=== PATIENT | male | born 1960 | race Caucasian/White ===

== ENCOUNTER 2016-03-16 19:36 | Emergency (ER) | payer BC, OTHER ==
[2016-03-16 20:21] VITALS: BP 139/76
--- NOTE | 2016-03-16 20:35 | UC ---
Respiratory Complaint HPI - HPI Summary HPI Summary: patient has cold symptoms but developed wheezing over the last two days and increased fatigue. - History of Current Complaint Chief Complaint: UCGeneralIllness Stated Complaint: COUGH Time Seen by Provider: 03/16/16 20:24 Hx Obtained From: Patient Onset/Duration: Gradual Onset, Lasting Days Timing: Constant Severity Initially: Mild Severity Currently: Mild Pain Intensity: 3 Pain Scale Used: 0-10 Numeric Character: Cough: Nonproductive Aggravating Factors: Exertion, Deep Breaths, Recumbent Position Alleviating Factors: Nothing Associated Signs And Symptoms: Positive: Dyspnea, Wheezing, URI, Nasal Congestion - Risk Factors Pulmonary Embolism Risk Factors: Negative Cardiac Risk Factors: Negative Pseudomonas Risk Factors: Negative Tuberculosis Risk Factors: Negative - Allergies/Home Medications Allergies/Adverse Reactions: Allergies Allergy/AdvReac Type Severity Reaction Status Date / Time No Known Allergies Allergy Verified 03/16/16 20:20 PMH/Surg Hx/FS Hx/Imm Hx Previously Healthy: Yes Endocrine History Of: Denies: Diabetes, Thyroid Disease Cardiovascular History Of: Reports: Hypertension Denies: Cardiac Disorders, Pacemaker/ICD Respiratory History Of: Reports: Asthma Denies: COPD GI/ History Of: Reports: Gastroesophageal Reflux Denies: Renal Disease Neurological History Of: Denies: CVA, Dementia, Seizures Other History Of: Negative For: Anticoagulant Therapy - Surgical History Surgical History: Yes Surgery Procedure, Year, and Place: l. testicle removed. LIVER BIOPSY 1994 - Family History Known Family History: Positive: Unknown Family History: no known cardio vascular issues in lineage - Social History Alcohol Use: None Substance Use Type: None Smoking Status (MU): Former Smoker When Did the Patient Quit Smoking/Using Tobacco: 30 years ago - Immunization History Most Recent Influenza Vaccination: [id number] Review of Systems Constitutional: Fatigue Skin: Negative Eyes: Negative ENT: Nasal Discharge Respiratory: Shortness Of Breath, Cough Cardiovascular: Negative Gastrointestinal: Negative Genitourinary: Negative Motor: Negative Neurovascular: Negative Musculoskeletal: Negative Neurological: Negative Psychological: Negative All Other Systems Reviewed And Are Negative: Yes Physical Exam Triage Information Reviewed: Yes Appearance: No Pain Distress, Ill-Appearing, Obese Vital Signs: Initial Vital Signs Temp 99.1 F 03/16/16 20:16 Pulse 93 03/16/16 20:16 Resp 18 03/16/16 20:16 BP 139/76 03/16/16 20:16 Pulse Ox 96 03/16/16 20:16 Vital Signs Reviewed: Yes Eye Exam: Normal Eyes: Positive: Conjunctiva Clear ENT: Positive: Hearing grossly normal, Pharyngeal erythema, Nasal congestion, TM red Dental Exam: Normal Neck exam: Normal Neck: Positive: Supple, Nontender, No Lymphadenopathy Respiratory Exam: Normal Respiratory: Positive: Chest non-tender, Lungs clear, Normal breath sounds Cardiovascular Exam: Normal Cardiovascular: Positive: RRR, No Murmur, Pulses Normal Abdominal Exam: Normal Abdomen Description: Positive: Nontender, No Organomegaly, Soft Bowel Sounds: Positive: Present Musculoskeletal Exam: Normal Musculoskeletal: Positive: Strength Intact, ROM Intact, No Edema Neurological Exam: Normal Neurological: Positive: Alert, Muscle Tone Normal Psychological Exam: Normal Skin Exam: Normal UC Diagnostic Evaluation - Laboratory O2 Sat by Pulse Oximetry: 96 Respiratory Course/Dx - Course Course Of Treatment: hx obtained, exam performed, medications prescribed for bronchitis, - Differential Dx/Diagnosis Differential Diagnosis/HQI/PQRI: Bronchitis, Influenza, Laryngitis, Sinusitis, Tuberculosis Provider Diagnoses: bronchitis Discharge - Discharge Plan Condition: Stable Disposition: HOME Prescriptions: Albuterol HFA INHALER* [Ventolin HFA Inhaler*] 1 - 2 puff INH Q4H PRN #1 mdi PRN Reason: Cough Patient Education Materials: Acute Bronchitis (ED) Forms: *Work Release Additional Instructions: Get plenty of rest, increase your fluid intake. take the medications as prescribed.
== END 2016-03-16 20:43 | disposition home or self-care (01) ==
LOC: UCCORT 19:36
DX: J40 Bronchitis, not specified as acute or chronic (principal); Z87.891 Personal history of nicotine dependence
CPT/HCPCS: 99212; G0463

== ENCOUNTER 2016-04-30 21:18 | Emergency (ER) | payer OTHER ==
[2016-04-30 21:41] VITALS: BP 143/78
--- NOTE | 2016-04-30 22:08 | UC ---
UC General HPI - HPI Summary HPI Summary: tingling in left forearm and wrist off and on, especially at night. Has to wake up and shake his hand to get it back to normal. Massage also helps. Thinks it was related to stopping atorvastatin a month or so ago. No weakness. No discoloration. No CP or SOB. Has had an echocardiogram recently, he was told he has a large heart. - History of Current Complaint Chief Complaint: UCUpperExtremity Stated Complaint: RT ARM COMPLAINT Time Seen by Provider: 04/30/16 21:36 Hx Obtained From: Patient, Family/Dairy Quality Assurance Officer Onset/Duration: Gradual Onset, Lasting Weeks - 5 Onset Severity: Mild Current Severity: Mild - Allergy/Home Medications Allergies/Adverse Reactions: Allergies Allergy/AdvReac Type Severity Reaction Status Date / Time No Known Allergies Allergy Verified 04/30/16 21:29 Home Medications: Home Medications Atorvastatin* [Lipitor*] 20 mg PO 1700 04/30/16 [History Confirmed 04/30/16] PMH/Surg Hx/FS Hx/Imm Hx Endocrine History Of: Denies: Diabetes, Thyroid Disease Cardiovascular History Of: Reports: Hypertension Denies: Cardiac Disorders, Pacemaker/ICD Respiratory History Of: Reports: Asthma Denies: COPD GI/ History Of: Reports: Gastroesophageal Reflux Denies: Renal Disease Neurological History Of: Denies: CVA, Dementia, Seizures Other History Of: Negative For: Anticoagulant Therapy - Surgical History Surgical History: Yes Surgery Procedure, Year, and Place: l. testicle removed. LIVER BIOPSY 1994 - Family History Known Family History: Positive: Unknown Family History: no known cardio vascular issues in lineage - Social History Occupation: Disabled Lives: With Family Alcohol Use: None Substance Use Type: None Smoking Status (MU): Former Smoker When Did the Patient Quit Smoking/Using Tobacco: 30 years ago - Immunization History Most Recent Influenza Vaccination: [id number] Review of Systems Constitutional: Negative Skin: Negative Eyes: Negative ENT: Negative Respiratory: Negative Cardiovascular: Negative Gastrointestinal: Negative Genitourinary: Negative Motor: Negative Neurovascular: Negative Musculoskeletal: Negative Neurological: Paresthesia - off and on, left forearm Psychological: Negative All Other Systems Reviewed And Are Negative: Yes Physical Exam Triage Information Reviewed: Yes Appearance: Well-Appearing, No Pain Distress, Well-Nourished Vital Signs: Initial Vital Signs Temp 97.5 F 04/30/16 21:25 Pulse 78 04/30/16 21:25 Resp 14 04/30/16 21:25 BP 143/78 04/30/16 21:25 Pulse Ox 98 04/30/16 21:25 Vital Signs Reviewed: Yes Eye Exam: Normal Neck exam: Normal Respiratory Exam: Normal Cardiovascular Exam: Normal Musculoskeletal Exam: Normal Musculoskeletal: Positive: Other: - normal warmth and coloration of left hand. Strong wrist pulses. Neg Tinel's sign. Normal resort desk clerk strength Neurological Exam: Normal Psychological Exam: Normal Course/Dx - Differential Dx - Multi-Symptom Provider Diagnoses: carpal tunnel syndrome Discharge - Discharge Plan Condition: Stable Disposition: HOME Prescriptions: Beclomethasone 80 MCG MDI(NF) [Qvar 80 MCG MDI(NF)] 2 puff INH BID #1 mdi Patient Education Materials: Carpal Tunnel Syndrome (ED) Referrals: Madan George MD [Primary Care Provider] - Additional Instructions: Try stopping the Atorvastatin for a week to see if the tingling gets better. If that doesn't work, wear the splint for a week to see if it helps.
== END 2016-04-30 22:09 | disposition home or self-care (01) ==
LOC: UCCORT 21:18
DX: G56.02 Carpal tunnel syndrome, left upper limb (principal); I10 Essential (primary) hypertension; Z87.891 Personal history of nicotine dependence
CPT/HCPCS: 99213; G0463

== ENCOUNTER 2016-08-20 13:18 | Emergency (ER) | payer BC, OTHER ==
[2016-08-20 14:38] VITALS: BP 133/78
--- NOTE | 2016-08-20 15:03 | UC ---
Respiratory Complaint HPI - HPI Summary HPI Summary: pt reports 2 days of worsening sinus congestion/kyle/pain, cough, chest congestion , wheezing/dyspnea and malaise. increased inhaler use. sleeping ok on cpap. has needed steroids in the past for similar sx. h/o seasonal allergies - History of Current Complaint Chief Complaint: UCRespiratory Stated Complaint: SINUS,TIRED,FEVER,LOSS OF APPETITE Time Seen by Provider: 08/20/16 14:39 Hx Obtained From: Patient, Family/Patent Counsel Onset/Duration: Sudden Onset, Lasting Days - 2, Still Present, Worse Since - today Timing: Constant Severity Initially: Moderate Severity Currently: Moderate Aggravating Factors: Allergens, Exertion, Deep Breaths Alleviating Factors: Bronchodilator Associated Signs And Symptoms: Positive: Dyspnea, Chills, Wheezing, URI, Nasal Congestion, Sinus Discomfort. Negative: Fever, Pleuritic Chest Pain, Hemoptysis , Dizziness, Hoarseness - Allergies/Home Medications Allergies/Adverse Reactions: Allergies Allergy/AdvReac Type Severity Reaction Status Date / Time No Known Allergies Allergy Verified 08/20/16 14:26 Home Medications: Home Medications Rosuvastatin (NF) [Crestor (NF)] 10 mg PO DAILY 08/20/16 [History Confirmed 11/28] PMH/Surg Hx/FS Hx/Imm Hx Endocrine History: Dyslipidemia Cardiovascular History: Hypertension Respiratory History: Asthma GI/ History: Other - colitis, fatty liver Other GI/ History: colitis, fatty liver Other History Of: Negative For: Anticoagulant Therapy - Surgical History Surgical History: Yes Surgery Procedure, Year, and Place: l. testicle removed. LIVER BIOPSY 1994 - Family History Known Family History: Positive: Hypertension, Other - cancer Family History: no known cardio vascular issues in lineage - Social History Occupation: Employed Full-time Lives: With Family Alcohol Use: None Substance Use Type: None Smoking Status (MU): Former Smoker When Did the Patient Quit Smoking/Using Tobacco: 30 years ago - Immunization History Most Recent Influenza Vaccination: [id number] Review of Systems Constitutional: Negative, Chills Skin: Negative ENT: Sore Throat - resolved, Nasal Discharge, Other - hpi Respiratory: Shortness Of Breath Cardiovascular: Negative Gastrointestinal: Other - decreased appetite Musculoskeletal: Negative Neurological: Headache - sinus All Other Systems Reviewed And Are Negative: Yes Physical Exam Triage Information Reviewed: Yes Appearance: Well-Appearing, No Pain Distress, Obese Vital Signs: Initial Vital Signs Temp 98 F 08/20/16 14:19 Pulse 83 08/20/16 14:19 Resp 18 08/20/16 14:19 BP 133/78 08/20/16 14:19 Pulse Ox 97 08/20/16 14:19 Vital Signs Reviewed: Yes Eyes: Positive: Conjunctiva Clear. Negative: Discharge ENT: Positive: Hearing grossly normal, Pharynx normal, Nasal congestion, Nasal drainage, TMs normal. Negative: Tonsillar swelling, Tonsillar exudate, Trismus , Muffled/hoarse voice Neck: Positive: Supple, Nontender, No Lymphadenopathy Respiratory: Positive: No respiratory distress, No accessory muscle use, Wheezing - scattered, Expiration - prolonged at bases Cardiovascular: Positive: RRR, No Murmur Musculoskeletal Exam: Normal Neurological: Positive: Alert, Muscle Tone Normal Psychological: Positive: Age Appropriate Behavior Skin Exam: Normal UC Diagnostic Evaluation - Laboratory O2 Sat by Pulse Oximetry: 97 Respiratory Course/Dx - Differential Dx/Diagnosis Differential Diagnosis/HQI/PQRI: Asthma, Bronchitis, Lower Resp Infection, Sinusitis Provider Diagnoses: asthma, bronchitis Discharge - Discharge Plan Condition: Stable Disposition: HOME Patient Education Materials: Asthma (ED), Acute Bronchitis (ED) Referrals: Madan George MD [Primary Care Provider] - (follow up in 8-10 days) Additional Instructions: INHALED BRONCHODILATORS: You can use your inhaler every 4 hours while awake for shortness of breath and wheezing. You have received a prescription for an inhaled bronchodilator -- a medication which stimulates the airways in the lung to dilate. This improves the flow of air in asthma, bronchitis, and emphysema. These medicines have some similarity to adrenaline, and can cause similar side effects: shakiness, racing heart, and a sense of nervousness. These side effects decrease with time. Contact your doctor if these side effects are severe. Do not over-use the medicine. Too-frequent use of the inhaler may make it ineffective. Call your doctor if the inhaler is not controlling your symptoms at the prescribed doses. EXPECTORANT MEDICATION: WE SENT IN A SCRIPT FOR MUCINEX SO THAT IT IS EASIER FOR YOU TO PICK THE RIGHT MED AT THE PHARMACY. HOWEVER, YOU CAN ALSO GO TO THE [facility] AND BUY PLAIN GUAIFENESIN WITHOU BINDERS OR FILLERS. An expectorant medicine has been prescribed. This type of drug makes mucous thinner, helping the sinuses, nose, and bronchial tubes to remain free of pus and mucous. Expectorants make a cough less severe and more comfortable, and help infected sinuses drain. In general, antihistamines defeat the purpose of the expectorant by making mucous thicker. They should be avoided unless specifically recommended by your physician. TESSALON PERLES: You have received a prescription for Tessalon Perles (benzonatate). This is a non-narcotic medicine for relief of cough. It usually works in about 15- 20 minutes and lasts around four hours. Tessalon Perles should be swallowed. They should not be chewed or dissolved in the mouth (this can produce temporary numbing of the mouth and choking can occur). If you develop any adverse effects such as wheezing, shortness of breath, hives, rash, itching, or lightheadedness, please return at once. CORTICOSTEROID MEDICATION: You have been given a medicine of the cortisone class. This medication is used to control inflammation or allergy. It is usually only given for a short period of time, until the acute process subsides. There are usually no side effects from short-term use of cortisone-like medications. Some persons feel an increased sense of well-being and are not sleepy at bedtime. Long-term use of cortisone medications is best avoided, unless required for a severe condition. If your condition does not remit, or relapses after the course of corticosteroid medication, you should consult your physician. Contact the physician if you develop lightheadedness, black or tarry stools , swelling of the legs, or significant rapid change in weight.
== END 2016-08-20 15:19 | disposition home or self-care (01) ==
LOC: UCCORT 13:18
DX: J40 Bronchitis, not specified as acute or chronic (principal); J45.909 Unspecified asthma, uncomplicated; Z87.891 Personal history of nicotine dependence
CPT/HCPCS: 99212; G0463

== ENCOUNTER 2017-02-20 14:26 | Emergency (ER) | payer BC | END 2017-02-20 14:40 | disposition left against medical advice (07) | LOC: UCCORT 14:26 | DX: R11.10 Vomiting, unspecified (principal); R19.7 Diarrhea, unspecified; Z53.21 Procedure and treatment not carried out due to patient leaving prior to being seen by health care provider ==

== ENCOUNTER 2017-02-25 15:11 | Emergency (ER) | payer BC ==
[2017-02-25] MEDS: NS 0.9% 1000 ML* 2,000 ML IV ONE ×2 (18:37→18:38)
[2017-02-25 18:49] LABS: Hematocrit 43 % (42-52); Hemoglobin 14.5 g/dl (14.0-18.0); Mean Corpuscular HGB Conc 34 g/dl (31-36); Mean Corpuscular Hemoglobin 30 pg (27-31); Mean Corpuscular Volume 87 fL (80-94); Mean Platelet Volume 8 um3 (7.4-10.4); Red Blood Count 4.91 10^6/ul (4.0-5.4); Red Cell Distribution Width 14 % (10.5-15); White Blood Count 7.1 10^3/ul (3.5-10.8)
[2017-02-25 19:00] LABS: Urine Bacteria Absent (Absent); Urine Bilirubin Negative (Negative); Urine Glucose Negative (Negative); Urine Nitrite Negative (Negative)
[2017-02-25 19:04] LABS: Albumin 4.3 g/dL (3.2-5.2); BUN/Creatinine Ratio 11.4 (8-20); Calcium 9.1 mg/dL (8.6-10.3); EGFR Non-African American 101.8 (>60); Globulin 2.8 g/dL (2-4); Magnesium 1.9 mg/dL (1.9-2.7); Potassium 3.1 mmol/L (3.5-5.0); Total Bilirubin 0.5 mg/dL (0.2-1.0); Total Protein 7.1 g/dL (6.4-8.9)
[2017-02-25] MEDS ORDERED: Iohexol 300* (CONTRAST) 10 ML SDV IV ONE (19:52)
--- NOTE | 2017-02-25 20:21 | RAD ---
CLINICAL HISTORY: Diarrhea, history of colitis COMPARISON: None TECHNIQUE: Multiple contiguous axial CT scans were obtained of the abdomen and pelvis after the administration of intravenous contrast. Coronal and sagittal multiplanar reformations are submitted for review. Oral contrast was administered. Delayed images were obtained through the abdomen and pelvis. FINDINGS: LUNG BASES: The lung bases are clear. LIVER: The liver is normal in shape, size, contour, and attenuation. BILE DUCTS: There is no intrahepatic or extrahepatic biliary dilatation. GALLBLADDER: The gallbladder is normal, without pericholecystic inflammatory change. PANCREAS: The pancreas is normal, without mass or ductal dilatation. SPLEEN: Normal in size and appearance. UPPER GI TRACT: Evaluation of the gastrointestinal tract is limited by incomplete gastric distention. The upper GI tract is unremarkable. SMALL BOWEL AND MESENTERY: The small bowel is normal in contour, course, and caliber. There is no obstruction or dilatation. Multiple small lymph nodes of the mesentery. There is no lymphadenopathy by size criteria COLON: The colon is normal in contour, course, caliber. There is no pericolonic inflammatory change. ADRENALS: Normal bilaterally. KIDNEYS: The kidneys are normal in shape, size, contour, and axis. There is no hydronephrosis or nephrolithiasis. BLADDER: The bladder is smooth in contour. PELVIC ORGANS: The prostate gland is normal. The seminal vesicles are symmetric. AORTA: The aorta is normal. IVC: Unremarkable LYMPH NODES: As noted above, there are multiple small lymph nodes of the small bowel mesentery. There is no lymphadenopathy by size criteria. ABDOMINAL WALL: There is a small fat-containing abdominal hernia. BONES AND SOFT TISSUES: Mild degenerative changes are noted. OTHER: None IMPRESSION: SMALL LYMPH NODES OF THE SMALL BOWEL MESENTERY WITHOUT LYMPHADENOPATHY BY SIZE CRITERIA. NO ACUTE CT PATHOLOGY OF THE VISUALIZED ABDOMEN OR PELVIS.
[2017-02-25] MEDS ORDERED: Potassium Chlor TAB* 20 MEQ TAB.ER PO ONE (20:39)
--- NOTE | 2017-02-25 20:59 | ED ---
GI/ HPI - HPI Summary HPI Summary: 56M presents with diarrhea for 5 days. He states that last weekend he had vomiting for two days and then the diarrhea started. He states he had a similar episode like this two years ago that stopped spontaneously. He was seen at [facility] last weekend and told that wbc was elevated and potassium was low but no CT done. He has history of ulcerative colitis. He denies any blood in his stool. He states this does not feel like a flare. He was seen by his primary but no stool culture as done. He has started to take imodium and peptobismol without relief. He denies any vomiting currently. He denies any fever. He denies any abdominal pain. He has no history of diverticulitis. He states that he feels fatigued. - History of Current Complaint Chief Complaint: EDGeneral Time Seen by Provider: 02/25/17 18:01 Stated Complaint: DIARRHEA X5 DAYS Pain Intensity: 1 - Allergy/Home Medications Allergies/Adverse Reactions: Allergies Allergy/AdvReac Type Severity Reaction Status Date / Time No Known Allergies Allergy Verified 02/25/17 15:24 PMH/Surg Hx/FS Hx/Imm Hx Endocrine/Hematology History: Denies: Hx Anticoagulant Therapy, Hx Diabetes, Hx Thyroid Disease Cardiovascular History: Reports: Hx Hypertension Denies: Hx Pacemaker/ICD Respiratory History: Reports: Hx Asthma Denies: Hx Chronic Obstructive Pulmonary Disease (COPD) History: Denies: Hx Renal Disease Neurological History: Denies: Hx Dementia, Hx Seizures Psychiatric History: Denies: Hx Substance Abuse - Surgical History Surgery Procedure, Year, and Place: left testicle removed at age 18 - Immunization History Date of Tetanus Vaccine: UTD Date of Influenza Vaccine: NO Infectious Disease History: No Infectious Disease History: Denies: Hx Clostridium Difficile, Hx Hepatitis, Hx Human Immunodeficiency Virus (HIV), Hx of Known/Suspected MRSA, Hx Shingles, Hx Tuberculosis, Hx Known/ Suspected VRE, Hx Known/Suspected VRSA, History Other Infectious Disease, Traveled Outside the [place] in Last 30 Days - Family History Known Family History: Positive: Hypertension, Other - cancer Family History: no known cardio vascular issues in lineage - Social History Alcohol Use: None Substance Use Type: Reports: None Smoking Status (MU): Former Smoker Review of Systems Negative: Fever Negative: Chest Pain Negative: Shortness Of Breath Positive: Diarrhea. Negative: Abdominal Pain, Vomiting, Nausea All Other Systems Reviewed And Are Negative: Yes Physical Exam Triage Information Reviewed: Yes Vital Signs On Initial Exam: Initial Vitals Temp Pulse Resp BP Pulse Ox 97.5 F 84 18 147/89 96 02/25/17 15:19 02/25/17 15:19 02/25/17 15:19 02/25/17 15:19 02/25/17 15:19 Vital Signs Reviewed: Yes Appearance: Positive: Well-Appearing Skin: Positive: Warm, Dry Head/Face: Positive: Normal Head/Face Inspection Eyes: Positive: Normal, EOMI, SAIMA, Conjunctiva Clear ENT: Positive: Normal ENT inspection, Pharynx normal, TMs normal Respiratory/Lung Sounds: Positive: Clear to Auscultation, Breath Sounds Present Cardiovascular: Positive: Normal, RRR Abdomen Description: Positive: Nontender, Soft Bowel Sounds: Positive: Present Musculoskeletal: Positive: Normal Neurological: Positive: Normal Psychiatric: Positive: Normal - [place] Coma Scale Coma Scale Total: 15 Diagnostics - Vital Signs Vital Signs Temp Pulse Resp BP Pulse Ox 02/25/17 17:19 98.4 F 80 19 157/111 95 02/25/17 15:19 97.5 F 84 18 147/89 96 - Laboratory Lab Results: Lab Results 02/25/17 02/25/17 02/25/17 Range/Units 18:28 18:35 18:35 WBC 7.1 (3.5-10.8) 10^3/ul RBC 4.91 (4.0-5.4) 10^6/ul Hgb 14.5 (14.0-18.0) g/dl Hct 43 (42-52) % MCV 87 (80-94) fL MCH 30 (27-31) pg MCHC 34 (31-36) g/dl RDW 14 (10.5-15) % Plt Count 220 (150-450) 10^3/ul MPV 8 (7.4-10.4) um3 Neut % (Auto) 46.7 (38-83) % Lymph % (Auto) 36.3 (25-47) % [place] % (Auto) 12.1 H (1-9) % Eos % (Auto) 4.2 (0-6) % Baso % (Auto) 0.7 (0-2) % Absolute Neuts (auto) 3.3 (1.5-7.7) 10^3/ul Absolute Lymphs (auto) 2.6 (1.0-4.8) 10^3/ul Absolute Monos (auto) 0.9 H (0-0.8) 10^3/ul Absolute Eos (auto) 0.3 (0-0.6) 10^3/ul Absolute Basos (auto) 0.1 (0-0.2) 10^3/ul Absolute Nucleated RBC 0.01 10^3/ul Nucleated RBC % 0.1 Sodium 137 (133-145) mmol/L Potassium 3.1 L (3.5-5.0) mmol/L Chloride 104 (101-111) mmol/L Carbon Dioxide 27 (22-32) mmol/L Anion Gap 6 (2-11) mmol/L BUN 9 (6-24) mg/dL Creatinine 0.79 (0.67-1.17) mg/dL Est GFR ( Amer) 131.0 (>60) Est GFR (Non-Af Amer) 101.8 (>60) BUN/Creatinine Ratio 11.4 (8-20) Glucose 80 (70-100) mg/dL Lactic Acid (0.5-2.0) mmol/L Calcium 9.1 (8.6-10.3) mg/dL Magnesium 1.9 (1.9-2.7) mg/dL Total Bilirubin 0.50 (0.2-1.0) mg/dL AST 28 (13-39) U/L ALT 34 (7-52) U/L Alkaline Phosphatase 63 (34-104) U/L C-React Prot High Sens 9.81 mg/L Total Protein 7.1 (6.4-8.9) g/dL Albumin 4.3 (3.2-5.2) g/dL Globulin 2.8 (2-4) g/dL Albumin/Globulin Ratio 1.5 (1-3) Lipase 24 (11.0-82.0) U/L Urine Color Yellow Urine Appearance Clear Urine pH 6.0 (5-9) Ur Specific [place] 1.006 L (1.010-1.030) Urine Protein Negative (Negative) Urine Ketones Negative (Negative) Urine Blood 1+ H (Negative) Urine Nitrate Negative (Negative) Urine Bilirubin Negative (Negative) Urine Urobilinogen Negative (Negative) Ur Leukocyte Esterase Negative (Negative) Urine WBC (Auto) Absent (Absent) Urine RBC (Auto) Trace(0-2/hpf) (Absent) Urine Bacteria Absent (Absent) Urine Glucose Negative (Negative) 02/25/17 Range/Units 18:35 WBC (3.5-10.8) 10^3/ul RBC (4.0-5.4) 10^6/ul Hgb (14.0-18.0) g/dl Hct (42-52) % MCV (80-94) fL MCH (27-31) pg MCHC (31-36) g/dl RDW (10.5-15) % Plt Count (150-450) 10^3/ul MPV (7.4-10.4) um3 Neut % (Auto) (38-83) % Lymph % (Auto) (25-47) % [place] % (Auto) (1-9) % Eos % (Auto) (0-6) % Baso % (Auto) (0-2) % Absolute Neuts (auto) (1.5-7.7) 10^3/ul Absolute Lymphs (auto) (1.0-4.8) 10^3/ul Absolute Monos (auto) (0-0.8) 10^3/ul Absolute Eos (auto) (0-0.6) 10^3/ul Absolute Basos (auto) (0-0.2) 10^3/ul Absolute Nucleated RBC 10^3/ul Nucleated RBC % Sodium (133-145) mmol/L Potassium (3.5-5.0) mmol/L Chloride (101-111) mmol/L Carbon Dioxide (22-32) mmol/L Anion Gap (2-11) mmol/L BUN (6-24) mg/dL Creatinine (0.67-1.17) mg/dL Est GFR ( Amer) (>60) Est GFR (Non-Af Amer) (>60) BUN/Creatinine Ratio (8-20) Glucose (70-100) mg/dL Lactic Acid 1.2 (0.5-2.0) mmol/L Calcium (8.6-10.3) mg/dL Magnesium (1.9-2.7) mg/dL Total Bilirubin (0.2-1.0) mg/dL AST (13-39) U/L ALT (7-52) U/L Alkaline Phosphatase (34-104) U/L C-React Prot High Sens mg/L Total Protein (6.4-8.9) g/dL Albumin (3.2-5.2) g/dL Globulin (2-4) g/dL Albumin/Globulin Ratio (1-3) Lipase (11.0-82.0) U/L Urine Color Urine Appearance Urine pH (5-9) Ur Specific [place] (1.010-1.030) Urine Protein (Negative) Urine Ketones (Negative) Urine Blood (Negative) Urine Nitrate (Negative) Urine Bilirubin (Negative) Urine Urobilinogen (Negative) Ur Leukocyte Esterase (Negative) Urine WBC (Auto) (Absent) Urine RBC (Auto) (Absent) Urine Bacteria (Absent) Urine Glucose (Negative) Result Diagrams: 02/25/17 18:35 02/25/17 18:35 Lab Statement: Any lab studies that have been ordered have been reviewed, and results considered in the medical decision making process. - CT abd CT Interpretation: No Acute Changes - IMPRESSION: SMALL LYMPH NODES OF THE SMALL BOWEL MESENTERY WITHOUT LYMPHADENOPATHY BY SIZE CRITERIA. NO ACUTE CT PATHOLOGY OF THE VISUALIZED ABDOMEN OR PELVIS. CT Interpretation Completed By: Radiologist CHAZ Course/Dx - Course Course Of Treatment: 56M presents with diarrhea for 5 days. He states that last weekend he had vomiting for two days and then the diarrhea started. He states he had a similar episode like this two years ago that stopped spontaneously. He was seen at [facility] ED last weekend and told that wbc was elevated and potassium was low but no CT done. He has history of ulcerative colitis. He denies any blood in his stool. He states this does not feel like a flare. He was seen by his primary but no stool culture as done. He has started to take imodium and peptobismol without relief. He denies any vomiting currently. He denies any fever. He denies any abdominal pain. He has no history of diverticulitis. He states that he feels fatigued. on exam abdomen soft nontender. will get CT to r/o diverticulitis. labs wbc normal. potassium low so supplement. CT normal. c diff neg. told to follow up with his GI. patient understand and agrees with plan. - Diagnoses Differential Diagnoses - Male: Diverticulosis, Gastroenteritis (Bacterial), Gastroenteritis (Viral), Urinary Tract Infection Provider Diagnoses: Diarrhea Discharge - Discharge Plan Condition: Good Disposition: HOME Patient Education Materials: Acute Diarrhea (ED) Forms: *Work Release Referrals: Madan George MD [Primary Care Provider] - Additional Instructions: Drink small amounts of fluid as tolerated When able to eat follow BRAT diet: Bananas, rice, applesauce, toast Take Tylenol for pain as needed every 6 hours Take imodium as prescribed Follow up with GI Return to ED if develop any new or worsening symptoms
[2017-02-25 21:22] VITALS: BP 147/97
--- OUTSIDE RECORDS SUMMARY | 2017-02-28 09:32 | XMS REPORT | Continuity of Care Document ---
:1960 Author Organization [facility] Address [address] [place] [address] Care Team Providers Name Role Phone QASIM MADDOX MD Primary Care Physician [phone] Insurance Providers Payer Name Policy Number Subscriber Name Relationship [employer] [employer] [id number] MARCELLA HICKS SELF Advance Directives Directive Response Recorded Date/Time Code status: Limited Full Code 02/20/17 2:50pm Advance Directive? N 02/20/17 2:50pm Living Will? N 02/20/17 2:50pm Health Care Proxy? N 02/20/17 2:50pm Is the patient an Organ Donor? N 02/20/17 2:50pm Chief Complaint and Reason for Visit Reason for Visit VOMITING,DIARRHEA Problems Active Medical Problems Problem Onset Date Recorded Date Status Diarrhea Unknown 02/20/17 Active Medications Current Home Medications Medication Dose Units Route Directions Days/Qty Instructions Start Date Amlodipine (Norvasc) 10 MG TAB Lisinopril (Prinivil) 2.5 MG TAB Ondansetron HCl 4 MG ORAL EVERY 8 HOURS 15 NEEDED FOR 02/20/17 (Zofran) 4 MG NEEDED as NAUSEA TABLET needed for NAUSEA Rosuvastatin 20 MG ORAL ONCE DAILY 30 Calcium 20 MG TABLET STOOL STUDIES FECAL 02/20/17 LEUKOCYTES, STOOL FOR CDIFFICILE AND STOOL CULTURE Sertraline (Zoloft) 100 MG TAB Sertraline HCl 50 MG ORAL ONCE DAILY (Zoloft) 50 MG TABLET Sulfasalazine 500 1,000 MG ORAL 3 TIMES DAILY MG TAB Past Home Medications Medication Directions Ordered Status Albuterol (Proventil) 2 Mg/5 Ml Ounce Ounce, Unknown Discontinued Folic Acid 1 Mg Tab Tab, Unknown Discontinued Social History Problem Response Recorded Date Other substance/drug use N 02/20/17 Alcohol amt N 04/10/06 Evidence of drug/alcohol abuse? N 02/20/17 Query Response Start Date Stop Date Smoking Status Former smoker Hospital Discharge Instructions No hospital discharge instructions. Plan of Care Discharge Date 02/20/17 Disposition Routine Discharge Home Instructions/Education Provided ABD PAIN (USACS) Acute Nausea and Vomiting (ED) Acute Diarrhea (ED) Prescriptions See Medications Section Referrals QASIM MADDOX MD - Additional Instructions/Education You need to make an appointment to follow- up with the following health care provider or your regular doctor within 3 days. Please make your appointment to see your health care provider as soon as possible. Please return immediately if your symptoms worsen, or you cannot get a follow-up appointment. Follow up with your primary care provider In the next 24 hours. If you experience any worsening of her and her symptoms return to the emergency department immediately for further evaluation. Please collect stool samples and dropped him off to the lab as directed. Functional Status Query Response Date Recorded Do you get in and out of a chair: Independently February 20, 2017 3:33pm Do you walk: Independently February 20, 2017 3:33pm Do you bathe/dress: Independently February 20, 2017 3:33pm Adaptive devices: None February 20, 2017 3:33pm Amount of assistance needed: None February 20, 2017 3:33pm Living situation: Home with family February 20, 2017 3:33pm Mood: Accepting February 20, 2017 3:33pm Orientation: X3: Person/place/time February 20, 2017 3:33pm Allergies, Adverse Reactions, Alerts No known allergies. Immunizations Name Date Given Type Last Tetanus Historical Vital Signs Vital Reading Collection Date/Time Result Blood Pressure 02/20/17 4:30pm 128/85 Temperature 02/20/17 4:30pm 98.0 F Temperature Source 02/20/17 4:30pm Oral Respiratory Rate 02/20/17 4:30pm 18 Pulse Rate 02/20/17 4:30pm 92 Bedside Pulse Oximetry 02/20/17 4:30pm 94 Height 02/20/17 2:49pm 6 ft 0 in Height 02/20/17 2:49pm 182.88 cm Weight 02/20/17 2:49pm 260 lb Weight 02/20/17 2:49pm 117.936 kg Body Mass Index 02/20/17 2:49pm 35.3 kg/m2 Results Laboratory Results Test Name Result Units Flags Reference Collection Result Comments Date/Time Date/Time Urine Color DK YELLOW YELLOW 02/20/17 02/20/17 3:46pm 4:00pm Urine Clarity CLEAR CLEAR 02/20/17 02/20/17 3:46pm 4:00pm Urine Glucose (UA) NEGATIVE mg/dL NEGATIVE 02/20/17 02/20/17 3:46pm 4:00pm Urine Bilirubin NEGATIVE NEGATIVE 02/20/17 02/20/17 3:46pm 4:00pm Urine Ketones NEGATIVE mg/dL NEGATIVE 02/20/17 02/20/17 3:46pm 4:00pm Urine Specific 1.025 1.010-1.030 02/20/17 02/20/17 Sebastian 3:46pm 4:00pm Urine Blood NEGATIVE NEGATIVE 02/20/17 02/20/17 3:46pm 4:00pm Urine pH 5.5 L 6.5-7.5 02/20/17 02/20/17 3:46pm 4:00pm Urine Protein NEGATIVE mg/dL NEGATIVE 02/20/17 02/20/17 3:46pm 4:00pm Urine Urobilinogen 0.2 E.U./dL 0.2-1.0 02/20/17 02/20/17 3:46pm 4:00pm Urine Nitrite NEGATIVE NEGATIVE 02/20/17 02/20/17 3:46pm 4:00pm Urine Leukocyte NEGATIVE NEGATIVE 02/20/17 02/20/17 Esterase 3:46pm 4:00pm White Blood Count 14.4 K/uL H 3.4-10.5 02/20/17 02/20/17 3:29pm 3:41pm Red Blood Count 4.42 M/uL 4.20-5.80 02/20/17 02/20/17 3:29pm 3:41pm Hemoglobin 14.6 gm/dL 12.8-17.0 02/20/17 02/20/17 3:29pm 3:41pm Hematocrit 41.5 % 38.0-48.0 02/20/17 02/20/17 3:29pm 3:41pm Mean Corpuscular 93.9 fl 80.0-96.0 02/20/17 02/20/17 Volume 3:29pm 3:41pm Mean Corpuscular 33.0 pg 27.0-33.0 02/20/17 02/20/17 Hemoglobin 3:29pm 3:41pm Mean Corpuscular 35.2 g/dL 31.7-36.0 02/20/17 02/20/17 Hemoglobin Concent 3:29pm 3:41pm Platelet Count 166 K/uL # 155-360 02/20/17 02/20/17 3:29pm 3:41pm Red Cell 44.4 fl 36-51 02/20/17 02/20/17 Distribution Width 3:29pm 3:41pm RDW Coefficient of 16.3 % H 11.6-15.8 02/20/17 02/20/17 Variation 3:29pm 3:41pm Mean Platelet 10.7 fL H 6.6-10.6 02/20/17 02/20/17 Volume 3:29pm 3:41pm Neutrophils # 13.47 K/uL H 1.8-7.0 02/20/17 02/20/17 (Auto) 3:29pm 3:41pm Lymphocytes # 0.21 K/uL L 1.0-4.0 02/20/17 02/20/17 (Auto) 3:29pm 3:41pm Monocytes # (Auto) 0.56 K/uL 0.0-0.8 02/20/17 02/20/17 3:29pm 3:41pm Eosinophils # 0.16 K/uL 0.0-0.5 02/20/17 02/20/17 (Auto) 3:29pm 3:41pm Basophils # (Auto) 0.01 K/uL 0.0-0.1 02/20/17 02/20/17 3:29pm 3:41pm Manual Slide DIFF 02/20/17 02/20/17 Review ORDERED 3:29pm 4:24pm (Hematology) Differential Total 100 #CELLS 02/20/17 02/20/17 Cells Counted 3:29pm 4:30pm Band Neutrophils % 13 % *H 0-8 02/20/17 02/20/17 3:29pm 4:30pm Neutrophils % 80 % H 33-73 02/20/17 02/20/17 3:29pm 4:30pm Lymphocytes % 1 % L 20-42 02/20/17 02/20/17 3:29pm 4:30pm Monocytes % 5 % 0-10 02/20/17 02/20/17 3:29pm 4:30pm Eosinophils % 1 % 0-5 02/20/17 02/20/17 3:29pm 4:30pm Platelet Estimate NORMAL 02/20/17 02/20/17 3:29pm 4:30pm Normal RBC NORMAL 02/20/17 02/20/17 Morphology 3:29pm 4:30pm Glucose Screen 138 mg/dL H 74-106 02/20/17 02/20/17 3:29pm 3:55pm Blood Urea 20 mg/dL H 7-18 02/20/17 02/20/17 Nitrogen 3:29pm 3:55pm Creatinine 1.0 mg/dL 0.6-1.3 02/20/17 02/20/17 3:29pm 3:55pm Estimated GFR >60 mL/min >60 02/20/17 02/20/17 (Non- 3:29pm 3:55pm Swiss Estimated GFR >60 mL/min >60 02/20/17 02/20/17 Note: () 3:29pm 3:55pm Persistent reduction for 3 months or more in an eGFR <60 mL/min/1.73 m2 defines CKD. Patients with eGFR values >/=60 mL/min/1.73 m2 may also have CKD if evidence of persistent proteinuria is present. The original MDRD equation for estimated GFR is not valid for patients less than 18 years of age. Additional information may be found at www.[facility].org. BUN/Creatinine 20.0 ratio 02/20/17 02/20/17 Ratio 3:29pm 3:55pm Sodium Level 139 mmol/L 136-145 02/20/17 02/20/17 3:29pm 3:55pm Potassium Level 3.3 mmol/L L 3.5-5.1 02/20/17 02/20/17 3:29pm 3:55pm Chloride Level 105 mmol/L 98-107 02/20/17 02/20/17 3:29pm 3:55pm Carbon Dioxide 25 mmol/L 21-32 02/20/17 02/20/17 Level 3:29pm 3:55pm Anion Gap 9 mEq/L 8-16 02/20/17 02/20/17 3:29pm 3:55pm Calcium Level 8.6 mg/dL 8.5-10.1 02/20/17 02/20/17 3:29pm 3:55pm Total Protein 7.6 g/dL 6.4-8.2 02/20/17 02/20/17 3:29pm 3:55pm Albumin 4.0 g/dL 3.4-5.0 02/20/17 02/20/17 3:29pm 3:55pm Globulin 3.6 g/dL 1.9-4.3 02/20/17 02/20/17 3:29pm 3:55pm Albumin/Globulin 1.1 ratio 02/20/17 02/20/17 Ratio 3:29pm 3:55pm Total Bilirubin 0.5 mg/dL 0.2-1.0 02/20/17 02/20/17 3:29pm 3:55pm Aspartate Amino 30 U/L 15-37 02/20/17 02/20/17 Transf (AST/SGOT) 3:29pm 3:55pm Alanine 45 U/L 12-78 02/20/17 02/20/17 Aminotransferase 3:29pm 3:55pm (ALT/SGPT) Alkaline 74 U/L 45-117 02/20/17 02/20/17 Phosphatase 3:29pm 3:55pm Lipase 211 U/L 56-289 02/20/17 02/20/17 3:29pm 3:55pm Procedures No Known History of Procedures. Encounters Encounter Location Arrival/Admit Date Discharge/Depart Date Attending Provider Departed [place] 02/20/17 2:45pm 02/20/17 4:55pm ROSINA COLE [facility]
== END 2017-02-25 21:22 | disposition home or self-care (01) ==
LOC: ED 15:11
DX: R19.7 Diarrhea, unspecified (principal); R11.10 Vomiting, unspecified; Z87.891 Personal history of nicotine dependence
CPT/HCPCS: 36415; 74177; 80053; 81003; 81015; 83605; 83690; 83735; 85025; 86141; 87045; 87046; 87493; 87899; 96360; 99283; A9270-GY; Q9967

== ENCOUNTER 2017-08-24 18:37 | Emergency (ER) | payer BC ==
[2017-08-24 19:01] VITALS: BP 136/82
[2017-08-24] MEDS ORDERED: Loperamide CAP* 2 MG PO ONE (19:17)
[2017-08-24] MEDS ORDERED: Ondansetron ODT TAB* 4 MG PO ONE (19:17)
--- NOTE | 2017-08-24 19:37 | UC ---
Abdominal Pain Male HPI - HPI Summary HPI Summary: Pt c/o sudden onset of abdominal pain, nausea and loose stools today. Pt has history of ulcerative colitis. Pt states he has had 4 episode of large amounts of loose stool. - History of Current Complaint Chief Complaint: UCGI Stated Complaint: NAUSEA, VOMITING, DIARRHEA Time Seen by Provider: 08/24/17 19:11 Hx Obtained From: Patient Onset/Duration: Sudden Onset, Lasting Hours Timing: Intermittent Episodes Lasting: Severity Initially: Mild Severity Currently: None Pain Intensity: 0 Location: Diffuse Radiates: No Character: Colicy, Cramping, Dull Aggravating Factor(s): Food Alleviating Factor(s): Nothing Associated Signs And Symptoms: Positive: Decreased Appetite, Nausea, Diarrhea - Risk Factors Testicular Torsion: Negative - Allergies/Home Medications Allergies/Adverse Reactions: Allergies Allergy/AdvReac Type Severity Reaction Status Date / Time No Known Allergies Allergy Verified 06/21/17 10:31 PMH/Surg Hx/FS Hx/Imm Hx Previously Healthy: Yes GI/ History: Other - ulcerative colitis Other GI/ History: ulcerative colitis Other History Of: Negative For: Anticoagulant Therapy - Surgical History Surgical History: Yes Surgery Procedure, Year, and Place: left testicle removed at age 18. 1994 liver biopsy. DENTAL SURGERY - Family History Known Family History: Positive: Hypertension, Other - cancer Family History: no known cardio vascular issues in lineage - Social History Occupation: Employed Full-time Lives: With Family Alcohol Use: None Substance Use Type: None Smoking Status (MU): Former Smoker Have You Smoked in the Last Year: No When Did the Patient Quit Smoking/Using Tobacco: 30 years ago Household Exposure Type: Cigarettes - Immunization History Most Recent Influenza Vaccination: [id number] Vaccination Up to Date: Yes Review of Systems Constitutional: Negative Skin: Negative Eyes: Negative ENT: Negative Respiratory: Negative Cardiovascular: Negative Gastrointestinal: Abdominal Pain, Diarrhea, Nausea Genitourinary: Negative Motor: Negative Neurovascular: Negative Musculoskeletal: Negative Neurological: Negative Psychological: Negative Is Patient Immunocompromised?: No All Other Systems Reviewed And Are Negative: Yes Physical Exam Triage Information Reviewed: Yes Appearance: Ill-Appearing Vital Signs: Initial Vital Signs Temp 98.2 F 08/24/17 18:56 Pulse 73 08/24/17 18:56 Resp 18 08/24/17 18:56 BP 136/82 08/24/17 18:56 Pulse Ox 96 08/24/17 18:56 Vital Signs Reviewed: Yes Eye Exam: Normal ENT: Positive: Hearing grossly normal Dental Exam: Normal Neck exam: Normal Respiratory Exam: Normal Respiratory: Positive: Normal breath sounds Cardiovascular Exam: Normal Abdominal Exam: Normal Abdomen Description: Positive: Nontender Bowel Sounds: Positive: Present Musculoskeletal Exam: Normal Neurological Exam: Normal Psychological Exam: Normal Skin Exam: Normal Abd Pain Male Course/Dx - Differential Dx/Clinical Impression Differential Diagnosis/HQI/PQRI: Other - gastroenteritis ulcerative colitis Provider Diagnoses: diarrhea. abdominal pain. nausea Discharge - Sign-Out/Discharge Documenting (check all that apply): Discharge/Admit/Transfer - Discharge Plan Condition: Stable Disposition: HOME Prescriptions: Ondansetron ODT TAB* [Zofran 4 MG Odt TAB*] 4 mg PO Q8H PRN #15 tab.odt PRN Reason: Nausea Patient Education Materials: Acute Nausea and Vomiting (ED), Acute Diarrhea (ED ), Abdominal Pain (ED) Forms: *Work Release Referrals: Madan George MD [Primary Care Provider] - If Needed Additional Instructions: Please follow up with your PCP or return to clinic as needed. If symptoms worsen , please seek care at the closest emergency room immediately. - Billing Disposition and Condition Condition: STABLE Disposition: Home
== END 2017-08-24 20:12 | disposition home or self-care (01) ==
LOC: UCCORT 18:37
DX: R10.9 Unspecified abdominal pain (principal); R11.0 Nausea; R19.7 Diarrhea, unspecified; Z87.891 Personal history of nicotine dependence
CPT/HCPCS: 99211; A9270-GY; G0463

== ENCOUNTER 2017-08-27 14:57 | Emergency (ER) | payer BC ==
[2017-08-27 15:08] VITALS: BP 148/89
--- NOTE | 2017-08-27 15:35 | UC ---
UC General HPI - HPI Summary HPI Summary: OVER 3 MONTHS OF CONSTANT FATIGUE. NO FEVER, NAUSEA, SHORTNESS OF BREATH. NO SORE THROAT OR EAR PAIN. HE DOES REPORT SOME INTERMITTENT NAUSEA AND LOOSE STOOLS AND DECREASED APPETITE BUT HAS A HISTORY OF ULCERATIVE COLITIS. PATIENT REPORTS HE WORKS DOUBLE AND TRIPLE SHIFTS AT WORK AND IS CONCERNED THAT HE IS NOT GETTING ENOUGH TIME TO REST. 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 - History of Current Complaint Chief Complaint: UCGeneralIllness Stated Complaint: FATIGUE Time Seen by Provider: 08/27/17 15:14 Hx Obtained From: Patient Onset/Duration: Gradual Onset, Lasting Weeks, Still Present Timing: Constant Onset Severity: Moderate Current Severity: Moderate Pain Intensity: 0 - Allergy/Home Medications Allergies/Adverse Reactions: Allergies Allergy/AdvReac Type Severity Reaction Status Date / Time No Known Allergies Allergy Verified 06/21/17 10:31 Home Medications: Home Medications Albuterol HFA INHALER* [Ventolin HFA Inhaler*] 2 puff INH Q4H PRN 08/27/17 [ History Confirmed 08/27/17] Aspirin 81 mg CHEW TAB* 81 mg PO DAILY 08/27/17 [History Confirmed 08/27/17] Folic Acid TAB* [Folvite TAB*] 1 mg PO DAILY 08/27/17 [History Confirmed ] Multivitamin [Multivitamins] 1 cap PO DAILY 08/27/17 [History Confirmed 08/27/17 ] PMH/Surg Hx/FS Hx/Imm Hx Endocrine History: Dyslipidemia Cardiovascular History: Hypertension Respiratory History: Asthma Other GI/ History: ULCERATIVE COLITIS Other History Of: Negative For: Anticoagulant Therapy - Surgical History Surgical History: Yes Surgery Procedure, Year, and Place: left testicle removed at age 18. 1994 liver biopsy. DENTAL SURGERY - Family History Known Family History: Positive: Hypertension, Other - cancer Family History: no known cardio vascular issues in lineage - Social History Alcohol Use: None Substance Use Type: None Smoking Status (MU): Former Smoker Have You Smoked in the Last Year: No When Did the Patient Quit Smoking/Using Tobacco: 30 years ago Household Exposure Type: Cigarettes - Immunization History Most Recent Influenza Vaccination: [id number] Vaccination Up to Date: Yes Review of Systems Constitutional: Fatigue ENT: Negative Respiratory: Negative Cardiovascular: Negative Gastrointestinal: Negative All Other Systems Reviewed And Are Negative: Yes Physical Exam Triage Information Reviewed: Yes Appearance: Well-Appearing, No Pain Distress, Well-Nourished Vital Signs: Initial Vital Signs Temp 98.4 F 08/27/17 15:04 Pulse 84 08/27/17 15:04 Resp 16 08/27/17 15:04 BP 148/89 08/27/17 15:04 Pulse Ox 98 08/27/17 15:04 Vital Signs Reviewed: Yes Eyes: Positive: Conjunctiva Clear ENT: Positive: Hearing grossly normal, Pharynx normal, TMs normal Neck: Positive: Supple, Nontender, No Lymphadenopathy Respiratory Exam: Normal Cardiovascular Exam: Normal Abdomen Description: Positive: Soft Musculoskeletal: Positive: No Edema Neurological: Positive: Alert Psychological: Positive: Age Appropriate Behavior Skin: Negative: rashes Course/Dx - Differential Dx - Multi-Symptom Provider Diagnoses: FATIGUE Discharge - Sign-Out/Discharge Documenting (check all that apply): Discharge/Admit/Transfer - Discharge Plan Condition: Stable Disposition: HOME Patient Education Materials: Fatigue (ED) Forms: *Work Release Referrals: Madan George MD [Primary Care Provider] - 1 Week Additional Instructions: YOUR FATIGUE MAY VERY WELL BE CAUSED BY YOUR IRREGULAR WORK SCHEDULE AND LACK OF SLEEP. WILL CHECK LABS TODAY INCLUDING BLOOD COUNT, METABOLIC PANEL AND THYROID. YOU WILL NEED TO FOLLOW-UP WITH YOUR PCP FOR FURTHER EVALUATION OF YOUR SYMPTOMS. - Billing Disposition and Condition Condition: STABLE Disposition: Home
[2017-08-28 13:52] LABS: ABS Basophils 0 10^3/ul (0-0.2); ABS Eosinophils 0.2 10^3/ul (0-0.6); ABS Lymphocytes 1.2 10^3/ul (1.0-4.8); ABS Monocytes 0.5 10^3/ul (0-0.8); ABS Nucleated RBC 0 10^3/ul; Eosinophil % 3.8 % (0-6); Hematocrit 40 % (42-52); Hemoglobin 13.4 g/dl (14.0-18.0); Lymphocyte % 20.3 % (25-47); Mean Corpuscular HGB Conc 34 g/dl (31-36); Mean Corpuscular Hemoglobin 32 pg (27-31); Mean Corpuscular Volume 93 fL (80-94); Mean Platelet Volume 9.3 um3 (7.4-10.4); Nucleated Red Blood Cells % 0.2; Platelet Count 177 10^3/ul (150-450); Red Blood Count 4.23 10^6/ul (4.00-5.40); Red Cell Distribution Width 14 % (10.5-15)
--- NOTE | 2017-08-28 16:25 | UC ---
- Progress Note Progress Note: patients latest visit Cheif complaint of fatigue. H and H slightly low at 13.4 and 40. no other abnormal labs in the cbc, if symptoms persist follow up with his PCP. Discharge - Sign-Out/Discharge Documenting (check all that apply): Post-Discharge Follow Up - Discharge Plan Condition: Stable Disposition: HOME Patient Education Materials: Fatigue (ED) Forms: *Work Release Referrals: Madan George MD [Primary Care Provider] - 1 Week Additional Instructions: YOUR FATIGUE MAY VERY WELL BE CAUSED BY YOUR IRREGULAR WORK SCHEDULE AND LACK OF SLEEP. WILL CHECK LABS TODAY INCLUDING BLOOD COUNT, METABOLIC PANEL AND THYROID. YOU WILL NEED TO FOLLOW-UP WITH YOUR PCP FOR FURTHER EVALUATION OF YOUR SYMPTOMS. CONSIDER [facility] FOR FURTHER EVALUATION OF YOUR CHRONIC BACK PAIN [facility] [address] [place] [id number] - Billing Disposition and Condition Condition: STABLE Disposition: Home
== END 2017-08-27 16:38 | disposition home or self-care (01) ==
LOC: UCEAST 14:57
DX: R53.83 Other fatigue (principal); R11.0 Nausea; R19.7 Diarrhea, unspecified; E78.5 Hyperlipidemia, unspecified; I10 Essential (primary) hypertension; J45.909 Unspecified asthma, uncomplicated; Z87.891 Personal history of nicotine dependence; Z82.49 Family history of ischemic heart disease and other diseases of the circulatory system; Z80.9 Family history of malignant neoplasm, unspecified
CPT/HCPCS: 36415; 85025; 99212; G0463

== ENCOUNTER 2018-06-03 16:46 | Emergency (ER) | payer BC ==
[2018-06-03 18:20] LABS: Influenza A Molecular NEGATIVE (Negative); Influenza B Molecular NEGATIVE (Negative)
--- NOTE | 2018-06-03 18:22 | UC ---
Respiratory Complaint HPI - HPI Summary HPI Summary: 57 yo male with asthma presents with one week hx f/c, cough and congestion has been using rescue inhaler no cp or sob no n/v - History of Current Complaint Chief Complaint: UCRespiratory Stated Complaint: COUGH, CONGESTION Time Seen by Provider: 06/03/18 18:01 Hx Obtained From: Patient Onset/Duration: Gradual Onset, Lasting Days Timing: Constant Severity Initially: Moderate Pain Intensity: 0 Pain Scale Used: 0-10 Numeric Character: Cough: Productive Aggravating Factors: Nothing Alleviating Factors: Bronchodilator Associated Signs And Symptoms: Positive: Fever, Chills, Wheezing, URI, Nasal Congestion - Allergies/Home Medications Allergies/Adverse Reactions: Allergies Allergy/AdvReac Type Severity Reaction Status Date / Time No Known Allergies Allergy Verified 06/03/18 17:41 PMH/Surg Hx/FS Hx/Imm Hx Previously Healthy: Yes Endocrine History: Dyslipidemia Cardiovascular History: Hypertension Respiratory History: Asthma, Bronchitis Other History Of: Negative For: Anticoagulant Therapy - Surgical History Surgical History: Yes Surgery Procedure, Year, and Place: left testicle removed at age 18. 1994 liver biopsy. DENTAL SURGERY - Family History Known Family History: Positive: Hypertension, Respiratory Disease, Other - cancer Family History: no known cardio vascular issues in lineage - Social History Alcohol Use: None Alcohol Amount: RECOVERING ALCHOHOLIC Substance Use Type: None Smoking Status (MU): Former Smoker Have You Smoked in the Last Year: No When Did the Patient Quit Smoking/Using Tobacco: 30 years ago Household Exposure Type: Cigarettes - Immunization History Most Recent Influenza Vaccination: [id number] Vaccination Up to Date: Yes Review of Systems All Other Systems Reviewed And Are Negative: Yes Constitutional: Positive: Fever, Chills, Fatigue Skin: Positive: Negative Eyes: Positive: Negative ENT: Positive: Negative Respiratory: Positive: Cough, Other - wheezing Cardiovascular: Positive: Negative Gastrointestinal: Positive: Negative Genitourinary: Positive: Negative Motor: Positive: Negative Neurovascular: Positive: Negative Musculoskeletal: Positive: Negative Neurological: Positive: Negative Psychological: Positive: Negative Physical Exam Triage Information Reviewed: Yes Appearance: Well-Appearing, No Pain Distress, Well-Nourished Vital Signs: Initial Vital Signs Temp 97.3 F 06/03/18 17:46 Pulse 82 06/03/18 17:46 Resp 18 06/03/18 17:46 BP 144/76 06/03/18 17:46 Pulse Ox 96 06/03/18 17:46 Vital Signs Reviewed: Yes Eyes: Positive: Conjunctiva Clear ENT: Positive: Hearing grossly normal, Nasal congestion, TMs normal. Negative: Nasal drainage, Tonsillar swelling, Tonsillar exudate, Trismus, Muffled voice, Hoarse voice, Dental tenderness Dental Exam: Normal Neck: Positive: Nontender, No Lymphadenopathy Respiratory: Positive: Lungs clear, Normal breath sounds, No respiratory distress, No accessory muscle use, Wheezing - with forced expiration only Cardiovascular: Positive: RRR, No Murmur Musculoskeletal: Positive: ROM Intact, No Edema Neurological: Positive: Alert Psychological Exam: Normal Skin Exam: Normal Diagnostics - Radiology No standard instances Radiology Interpretation Completed By: ED Physician Summary of Radiographic Findings: NAD Respiratory Course/Dx - Course Course Of Treatment: influenza (-) - Differential Dx/Diagnosis Provider Diagnosis: Acute bronchitis Discharge - Sign-Out/Discharge Documenting (check all that apply): Patient Departure All imaging exams completed and their final reports reviewed: No - Discharge Plan Condition: Stable Disposition: HOME Patient Education Materials: Acute Bronchitis (ED) Forms: *Work Release Referrals: Tsering Vee MD [Primary Care Provider] - 4 Days (if not better) - Billing Disposition and Condition Condition: STABLE Disposition: Home
[2018-06-03] MEDS ORDERED: predniSONE TAB* 20 MG PO ONE (18:50)
[2018-06-03] MEDS ORDERED: Amoxicillin PO (*) 250 MG CAP PO ONE (18:51)
[2018-06-03] MEDS ORDERED: Amoxicillin PO (*) 500 MG CAP PO ONE (18:51)
[2018-06-03 18:59] VITALS: BP 150/88
--- NOTE | 2018-06-04 08:46 | UC ---
- Progress Note Progress Note: X ray report reviewed. neg. Course/Dx - Diagnoses Provider Diagnoses: Acute bronchitis Discharge - Sign-Out/Discharge Documenting (check all that apply): Post-Discharge Follow Up All imaging exams completed and their final reports reviewed: Yes - Discharge Plan Condition: Stable Disposition: HOME Prescriptions: Amoxicillin PO (*) [Amoxicillin 875 MG (*)] 875 mg PO BID #14 tab predniSONE [Deltasone 20 MG TAB] 40 mg PO DAILY #8 tab Patient Education Materials: Acute Bronchitis (ED) Forms: *Work Release Referrals: Tsering Vee MD [Primary Care Provider] - 4 Days (if not better) - Billing Disposition and Condition Condition: STABLE Disposition: Home
== END 2018-06-03 19:05 | disposition home or self-care (01) ==
LOC: UCCORT 16:46
DX: J20.9 Acute bronchitis, unspecified (principal); J45.909 Unspecified asthma, uncomplicated; I10 Essential (primary) hypertension; Z87.891 Personal history of nicotine dependence
CPT/HCPCS: 71046; 99212; A9270-GY; G0463; J7512

== ENCOUNTER 2018-06-30 21:03 | Emergency (ER) | payer BC ==
[2018-06-30 21:12] VITALS: BP 134/86
--- NOTE | 2018-06-30 21:22 | ED ---
HPI Chest Pain - HPI Summary HPI Summary: 58yr old male with the complaint of chest pain. Onset over the past few days, comes and goes, and worse with exertion. Associated with SOB. He feels like the pain is an ache. Presently 04/23. He has a family history of CAD. in Brother at Age 47 of [place]. Father and Grandmother with CAD. Denies dizziness , syncope, diaphoresis, nausea. He took extra baby aspirin today due to pain in his chest. 162 mg orally this morning. - History of Current Complaint Chief Complaint: UCChestPain Time Seen by Provider: 06/30/18 21:07 Pain Intensity: 2 - Allergy/Home Medications Allergies/Adverse Reactions: Allergies Allergy/AdvReac Type Severity Reaction Status Date / Time No Known Allergies Allergy Verified 06/03/18 17:41 PMH/Surg Hx/FS Hx/Imm Hx Endocrine/Hematology History: Denies: Hx Anticoagulant Therapy, Hx Diabetes, Hx Thyroid Disease Cardiovascular History: Reports: Hx Hypertension Denies: Hx Pacemaker/ICD Respiratory History: Reports: Hx Asthma Denies: Hx Chronic Obstructive Pulmonary Disease (COPD) History: Denies: Hx Renal Disease Neurological History: Denies: Hx Dementia, Hx Seizures Psychiatric History: Denies: Hx Substance Abuse - Surgical History Surgery Procedure, Year, and Place: left testicle removed at age 18. 1994 liver biopsy. DENTAL SURGERY - Immunization History Date of Tetanus Vaccine: UTD Date of Influenza Vaccine: NO Infectious Disease History: No Infectious Disease History: Denies: Hx Clostridium Difficile, Hx Hepatitis, Hx Human Immunodeficiency Virus (HIV), Hx of Known/Suspected MRSA, Hx Shingles, Hx Tuberculosis, Hx Known/ Suspected VRE, Hx Known/Suspected VRSA, History Other Infectious Disease, Traveled Outside the [place] in Last 30 Days - Family History Known Family History: Positive: Hypertension, Respiratory Disease, Other - cancer Family History: no known cardio vascular issues in lineage - Social History Alcohol Use: None Alcohol Amount: RECOVERING ALCHOHOLIC Substance Use Type: Reports: None Smoking Status (MU): Former Smoker Have You Smoked in the Last Year: No Review of Systems Constitutional: Negative Positive: Chest Pain Positive: Shortness Of Breath All Other Systems Reviewed And Are Negative: Yes Physical Exam Triage Information Reviewed: Yes Vital Signs On Initial Exam: Initial Vitals Temp Pulse Resp BP Pulse Ox 98 F 87 20 134/86 98 06/30/18 21:05 06/30/18 21:05 06/30/18 21:05 06/30/18 21:05 06/30/18 21:05 Vital Signs Reviewed: Yes Appearance: Positive: Well-Appearing, No Pain Distress Skin: Positive: Warm, Skin Color Reflects Adequate Perfusion Head/Face: Positive: Normal Head/Face Inspection Eyes: Positive: EOMI, SAIMA ENT: Positive: Normal ENT inspection Neck: Positive: Supple, Nontender Respiratory/Lung Sounds: Positive: Clear to Auscultation, Breath Sounds Present Cardiovascular: Positive: RRR. Negative: Murmur Abdomen Description: Negative: Distended Musculoskeletal: Positive: Strength/ROM Intact. Negative: Edema Left, Edema Right Neurological: Positive: Sensory/Motor Intact, Alert, Oriented to Person Place, Time, CN Intact II-III, Normal Gait, Speech Normal Psychiatric: Positive: Normal Diagnostics - Vital Signs Vital Signs Temp Pulse Resp BP Pulse Ox 06/30/18 21:05 98 F 87 20 134/86 98 - Laboratory Lab Statement: Any lab studies that have been ordered have been reviewed, and results considered in the medical decision making process. - EKG 06/30/18 Cardiac Rate: NL EKG Rhythm: Sinus Rhythm ST Segment: Non-Specific - there are T wave flattening in the precordial and lateral leads with ST dep Chest Pain Course/Dx - Course Course Of Treatment: 58 yr old with chest pain, EKG changes. He refused ambulance transfer to ER. It is recommended he go to the ER. He signed out AMA. - Diagnoses Provider Diagnoses: Chest pain Discharge - Sign-Out/Discharge Documenting (check all that apply): Patient Departure All imaging exams completed and their final reports reviewed: No Studies - Discharge Plan Condition: Good Disposition: AGAINST MEDICAL ADVICE Referrals: Tsering Vee MD [Primary Care Provider] - - Billing Disposition and Condition Condition: GOOD Disposition: Against Medical Advice
== END 2018-06-30 21:17 | disposition left against medical advice (07) ==
LOC: UCCORT 21:03
DX: R07.9 Chest pain, unspecified (principal); I10 Essential (primary) hypertension; J45.909 Unspecified asthma, uncomplicated; Z87.891 Personal history of nicotine dependence
CPT/HCPCS: 93005; 99212; G0463

== ENCOUNTER 2018-06-30 22:10 | Emergency (ER) | payer BC ==
--- NOTE | 2018-06-30 22:30 | ED ---
HPI Cardiac - HPI Summary HPI Summary: Patient is a 58 y/o M presenting to ED with complaints of chest pain and SOB. Sx onset a week ago and have been intermittent since onset. Patient states that he has been experiencing chest pain intermittently today, states that at present in room he is not experiencing chest pain but notes that it might return in the next few minutes. Chest pain is characterized as a tightness and is noted to be worse with exertion. Dizziness, syncope, diaphoresis, nausea are denied. No radiation of pain is reported. Hx of cardiac stress test over a year ago, test showed cardiomegaly, no other findings per patient, patient was advised to take low dose ASA daily. He took 162 mg ASA this morning. PMHx of sleep apnea, states that he has not been using machine as he should. FMHx of CAD , brother of [place] at 47. Patient is a former smoker and recovering alcoholic. He is on amlodipine and lisinopril. Patient was evaluated at [facility], was advised to come to ED. Patient refused transport by ambulance. On triage, pain is rated 2/10. Nothing is noted to alleviate Sx. Home medications and allergies are reviewed. Allergies Allergy/AdvReac Type Severity Reaction Status Date / Time No Known Allergies Allergy Verified 06/30/18 22:17 - History of Current Complaint Chief Complaint: EDChestPainROMI Stated Complaint: CHEST PAIN, SOB PER PT Time Seen by Provider: 06/30/18 22:28 Hx Obtained From: Patient Onset/Duration: Started Weeks Ago, Resolved - intermittent chest pain, none at present Timing: Intermittent, Lasting Weeks - Sx onset a week ago Initial Severity: Mild - 2/10 Current Severity: None - none at present Pain Intensity: 0 Pain Scale Used: 0-10 Numeric - 0/10 Chest Pain Radiates: No Character: Heaviness Aggravating Factor(s): Exertion Alleviating Factor(s): Nothing Associated Signs and Symptoms: Positive: Chest Pain, Shortness of Breath. Negative: Dizziness, Syncope, Diaphoresis, Nausea - Allergy/Home Medications Allergies/Adverse Reactions: Allergies Allergy/AdvReac Type Severity Reaction Status Date / Time No Known Allergies Allergy Verified 06/30/18 22:17 PMH/Surg Hx/FS Hx/Imm Hx Endocrine/Hematology History: Denies: Hx Anticoagulant Therapy, Hx Diabetes, Hx Thyroid Disease Cardiovascular History: Reports: Hx Hypertension Denies: Hx Pacemaker/ICD Respiratory History: Reports: Hx Asthma, Hx Sleep Apnea Denies: Hx Chronic Obstructive Pulmonary Disease (COPD) History: Denies: Hx Renal Disease Neurological History: Denies: Hx Dementia, Hx Seizures Psychiatric History: Denies: Hx Substance Abuse - Surgical History Surgery Procedure, Year, and Place: left testicle removed at age 18. 1994 liver biopsy. DENTAL SURGERY - Immunization History Date of Tetanus Vaccine: UTD Date of Influenza Vaccine: NO Infectious Disease History: No Infectious Disease History: Denies: Hx Clostridium Difficile, Hx Hepatitis, Hx Human Immunodeficiency Virus (HIV), Hx of Known/Suspected MRSA, Hx Shingles, Hx Tuberculosis, Hx Known/ Suspected VRE, Hx Known/Suspected VRSA, History Other Infectious Disease, Traveled Outside the [place] in Last 30 Days - Family History Known Family History: Positive: Cardiac Disease - CAD, brother with [place], Hypertension, Respiratory Disease, Other - cancer - Social History Alcohol Use: None Alcohol Amount: RECOVERING ALCHOHOLIC Substance Use Type: Reports: None Smoking Status (MU): Former Smoker Have You Smoked in the Last Year: No Review of Systems Negative: Skin Diaphoresis Positive: Chest Pain Positive: Shortness Of Breath Negative: Nausea Neurological: Other - NEGATIVE - DIZZINESS Negative: Syncope All Other Systems Reviewed And Are Negative: Yes Physical Exam - Summary Physical Exam Summary: Appearance: well-appearing, no pain distress, obese Skin: Warm, color reflects adequate perfusion, dry Head: Normal Head/Face inspection, atraumatic Eyes: Conjunctiva clear ENT: Normal inspection Neck: Supple, no nodes, no JVD Respiratory: Lungs clear, normal breath sounds, no respiratory distress Cardio: RRR, No murmur, pulses normal, brisk capillary refill Abdomen: Soft, nontender Bowel sounds: Present Musculoskeletal: Strength Intact/ROM intact, no calf tenderness, no edema. Psychological: Normal Neuro: Alert, muscle tone normal, no focal deficit Triage Information Reviewed: Yes Vital Signs On Initial Exam: Initial Vitals Temp Pulse Resp BP Pulse Ox 97.7 F 85 16 171/105 95 06/30/18 22:12 06/30/18 22:12 06/30/18 22:12 06/30/18 22:12 06/30/18 22:12 Vital Signs Reviewed: Yes Diagnostics - Vital Signs Vital Signs Temp Pulse Resp BP Pulse Ox 06/30/18 22:12 97.7 F 85 16 171/105 95 - Laboratory Result Diagrams: 06/30/18 22:35 06/30/18 22:34 Lab Statement: Any lab studies that have been ordered have been reviewed, and results considered in the medical decision making process. - Radiology Chest x-ray Radiology Interpretation Completed By: ED Physician Summary of Radiographic Findings: Chest x-ray showed no acute disease, pending official report. - EKG 2222 Cardiac Rate: NL - rate of 77 BPM EKG Rhythm: Sinus Rhythm ST Segment: Non-Specific Ectopy: None Summary of EKG Findings: EKG showed sinus rhythm with rate of 77 BPM, normal AVIVCT, normal QTc, left axis deviation (-53), no ectopy, non-specific ST. Re-Evaluation - Re-Evaluation First Eval Re-Evaluation Time: 01:30 Change: Improved Comment: Pt denies chest pain. States he has some discomfort occasionally with movement, and with pressing on her left anterior chest. 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 He denies SOB, palpitations. Pt's second troponin being drawn at this time. Second Eval Re-Evaluation Time: 01:58 Comment: Results of labs and tests were discussed with patient, he will be discharged to home and follow up with primary care physician. Patient is agreeable with this. Disposition - Course Course Of Treatment: Patient is a 58 y/o M presenting to ED with complaints of chest pain and SOB. Sx onset a week ago and have been intermittent since onset. Patient states that he has been experiencing chest pain intermittently today, states that at present in room he is not experiencing chest pain but notes that it might return in the next few minutes. Chest pain is characterized as a tightness and is noted to be worse with exertion. Dizziness, syncope, diaphoresis, nausea are denied. No radiation of pain is reported. Hx of cardiac stress test over a year ago, test showed cardiomegaly, no other findings per patient, patient was advised to take low dose ASA daily. He took 162 mg ASA this morning. PMHx of sleep apnea, states that he has not been using machine as he should. FMHx of CAD, brother of [place] at 47. Patient is a former smoker and recovering alcoholic. He is on amlodipine and lisinopril. Patient was evaluated at [facility], was advised to come to ED. On physical exam, patient is noted to be obese. EKG showed sinus rhythm with rate of 77 BPM, normal AVIVCT, normal QTc, left axis deviation (-53), no ectopy, non-specific ST. Chest x-ray showed no acute disease. Labs showed Hgb 13.7, Potassium 3.3, glucose 113, lactic acid 1.5, AST 45. First trop was 0.01, second trop was 0.01. Results of labs and tests were discussed with patient, he will be discharged to home and follow up with primary care physician. Patient is agreeable with this. - Diagnoses Provider Diagnoses: Chest pain Discharge - Sign-Out/Discharge Documenting (check all that apply): Patient Departure - discharge Patient Received Moderate/Deep Sedation with Procedure: No - Discharge Plan Condition: Stable Disposition: HOME Patient Education Materials: Chest Pain (ED) Forms: *Work Release Referrals: Tsering Vee MD [Primary Care Provider] - 2 Days Additional Instructions: Your labs and chest xray did not show a serious cause of your chest pain today. The reading on your xray is preliminary by Dr. Nolasco. If there is a change in treatment that is needed based on the official reading, we will contact you. You should have definite follow up with Dr. Vee in the next few days. Return to the ER if you have any new or worsening symptoms. - Attestation Statements Document Initiated by La Nenaibashu: Yes Documenting Scribe: LATONYA TREVIÑO Provider For Whom La Nenaibe is Documenting (Include Credential): LEDA NOLASCO MD Scribe Attestation: LATONYA Padron, scribed for LEDA NOLASCO MD on 07/01/18 at 0155. Status of Scribe Document: Ready
[2018-06-30 22:41] LABS: ABS Basophils 0 10^3/ul (0-0.2); ABS Eosinophils 0.3 10^3/ul (0-0.6); ABS Lymphocytes 1.6 10^3/ul (1.0-4.8); ABS Monocytes 0.8 10^3/ul (0-0.8); ABS Neutrophils 3.6 10^3/ul (1.5-7.7); ABS Nucleated RBC 0 10^3/ul; Eosinophil % 4.6 %; Hematocrit 41 % (36-46); Hemoglobin 13.7 g/dL (14.0-18.0); Lymphocyte % 25.3 %; Mean Corpuscular HGB Conc 34 g/dL (31-36); Mean Corpuscular Hemoglobin 30 pg (27-31); Mean Corpuscular Volume 88 fL (80-94); Mean Platelet Volume 8.4 fL (7.4-10.4); Nucleated Red Blood Cells % 0; Platelet Count 182 10^3/uL (150-450); Red Blood Count 4.66 10^6 /uL (4.18-5.48); Red Cell Distribution Width 15 % (10.5-15); White Blood Count 6.2 10^3/uL (3.5-10.8)
[2018-06-30 22:59] LABS: Albumin 4.6 g/dL (3.2-5.2); Albumin/Globulin Ratio 1.5 (1-3); BUN/Creatinine Ratio 14.8 (8-20); Calcium 9.6 mg/dL (8.6-10.3); EGFR Non-African American 89.3 (>60); Potassium 3.3 mmol/L (3.5-5.0); Total Bilirubin 0.4 mg/dL (0.2-1.0); Total Protein 7.6 g/dL (6.4-8.9)
[2018-06-30 23:01] LABS: Troponin I 0.01 ng/mL (<0.04)
[2018-07-01 02:14] VITALS: BP 137/90
== END 2018-07-01 02:13 | disposition home or self-care (01) ==
LOC: ED 22:10
DX: R07.9 Chest pain, unspecified (principal); R06.02 Shortness of breath; I10 Essential (primary) hypertension; Z87.891 Personal history of nicotine dependence
CPT/HCPCS: 36415; 71045; 80053; 83605; 84484; 85025; 93005; 99282